=== PATIENT | male | born 1955 | race Caucasian/White ===

== ENCOUNTER 2018-02-22 12:57 | Observation (INO) | payer MEDICAID, OTHER ==
[2018-02-22 12:57] VITALS: BMI 34.0
[2018-02-22 14:55] LABS: BASO % 0.4 % (0.0-2.0); EOS # 0.1 K/uL (0.0-0.7); EOS % 1.1 % (0.0-4.0); HEMOGLOBIN 14.6 g/dL (12.0-18.0); LYMPH # 1.2 K/uL (1.0-4.3); LYMPH % 12.1 % (20.0-40.0); MEAN CELL VOLUME 90.7 fl (80.0-94.0); MEAN CORPUSCULAR HEMOGLOBIN 31.7 pg (27.0-31.0); MEAN PLATELET VOLUME 9.6 fl (7.2-11.7); MONO # 0.6 K/uL (0.0-0.8); NEUT # 7.8 K/uL (1.8-7.0); NEUT % 80.4 % (50.0-75.0); NRBC % 0.1 % (0.0-0.0); RBC 4.61 Mil/uL (4.40-5.90); RED CELL DISTRIBUTION WIDTH 12.8 % (11.5-14.5); WHITE BLOOD COUNT 9.7 K/uL (4.8-10.8)
[2018-02-22 15:05] LABS: URINE BILIRUBIN NEGATIVE (NEGATIVE); URINE CLARITY SLIGHT-CLOUDY (Clear); URINE COLOR LIGHT RED (YELLOW); URINE GLUCOSE (UA) NEGATIVE (Normal)
[2018-02-22 15:06] LABS: URINE PROTEIN 100 mg/dL (NEGATIVE); URINE UROBILINOGEN 0.2-1.0 mg/dL (0.2-1.0)
[2018-02-22 15:07] LABS: SQUAMOUS EPITHIAL 1 /hpf (0-5); URINE BACTERIA RARE (<OCC); URINE BLOOD LARGE (NEGATIVE); URINE LEUKOCYTE ESTERASE Negative Leu/uL (Negative)
--- NOTE | 2018-02-22 16:37 | ED PDOC ---
HPI: Male Pain Time Seen by Provider: 02/22/18 13:35 Chief Complaint (Nursing): Male Genitourinary Chief Complaint (Provider): hematuria History Per: Patient, [employer], Other (urologist Dr Arroyo) Onset/Duration Of Symptoms: Gradual Current Symptoms Are (Timing): Still Present Quality Of Discomfort: Burning Additional Complaint(s): 62yo male with gross hematuria with clots, went to Dr Arroyo and thought in retention, sent to ED for evaluation and recommended admission for cystoscopy. Per patient first time this has happened. Known hx BPH w laser TURP several years ago. Denies recent fever, weakness or penile/pelvic trauma. Past Medical History Reviewed: Historical Data, Nursing Documentation, Vital Signs Vital Signs: Last Vital Signs Temp 98.2 F 02/22/18 13:12 Pulse 84 02/22/18 13:12 Resp 20 02/22/18 13:12 BP 149/83 02/22/18 13:12 Pulse Ox 98 02/22/18 13:12 - Medical History PMH: Anemia, Diverticulitis, Gastritis, Hypercholesterolemia Denies: Chronic Kidney Disease - Surgical History Surgical History: Hernia Repair - Family History Family History: States: Unknown Family Hx - Social History Current smoker - smoking cessation education provided: No - Immunization History Hx Tetanus Toxoid Vaccination: No Hx Influenza Vaccination: Yes Hx Pneumococcal Vaccination: No - Home Medications Home Medications: Ambulatory Orders Medication Instructions Recorded RX: Atorvastatin [Lipitor] 10 mg PO DAILY 02/22/18 RX: Calcium/Magnesium/Zinc [Sm 1 tab PO DAILY 02/22/18 [id number] Tab] RX: Cyclobenzaprine [Flexeril] 5 mg PO HS 02/22/18 RX: Fenofibrate 200 mg PO DAILY 02/22/18 RX: Gabapentin [Neurontin] 300 mg PO HS 02/22/18 RX: Bath-3/Dha/Epa/Fish Oil 2 gm PO BID 02/22/18 [Bath-3 Fish Oil 1,000 mg Sftg] RX: Omeprazole 40 mg PO DAILY 02/22/18 RX: Vitamin E [Vitamin E 400 Units 1 cap PO DAILY 02/22/18 Cap] Cefuroxime Axetil [Cefuroxime] 500 mg PO BID #20 tablet 02/24/18 RX: Tamsulosin [Flomax] 0.4 mg PO DAILY #14 cap 02/24/18 - Allergies Allergies/Adverse Reactions: Allergies Allergy/AdvReac Type Severity Reaction Status Date / Time No Known Allergies Allergy Verified 02/22/18 13:14 Review of Systems Constitutional: Negative for: Fever Cardiovascular: Negative for: Chest Pain Gastrointestinal: Positive for: Abdominal Pain. Negative for: Nausea Genitourinary Male: Positive for: Dysuria, Hematuria, Penile Pain Musculoskeletal: Positive for: Back Pain. Negative for: Neck Pain Skin: Negative for: Rash, Lesions Neurological: Negative for: Weakness, Numbness, Headache, Dizziness Psych: Negative for: Suicidal ideation Physical Exam - Reviewed Nursing Documentation Reviewed: Yes Vital Signs Reviewed: Yes - Physical Exam Appears: Positive for: Well, Non-toxic, No Acute Distress Head Exam: Positive for: ATRAUMATIC, NORMAL INSPECTION, NORMOCEPHALIC Skin: Positive for: Normal Color, Warm, DRY Eye Exam: Positive for: EOMI, Normal appearance, PERRL ENT: Positive for: Normal ENT Inspection Neck: Positive for: Normal, Painless ROM Cardiovascular/Chest: Positive for: Regular Rate, Rhythm Respiratory: Positive for: CNT, Normal Breath Sounds Gastrointestinal/Abdominal: Positive for: Soft Male Genital Exam: Positive for: bleeding (+gross blood clots) Back: Positive for: Normal Inspection Extremity: Positive for: Normal ROM Neurologic/Psych: Positive for: Alert, Oriented - Laboratory Results Result Diagrams: 02/24/18 05:45 02/24/18 05:45 - ECG O2 Sat by Pulse Oximetry: 98 Medical Decision Making Medical Decision Makinyo male sent from Dr Arroyo office with urinary retention and hematuria labs reviewed [address] way urbina placed w CBI D/w Dr Arroyo and Dr Barclay, admit Obs for possible OR tomorrow Ucx ordered PMD Trini Posada elma Disposition - Clinical Impression Clinical Impression: Gross hematuria, Urinary retention - Patient ED Disposition Is Patient to be Admitted: Yes Counseled Patient/Family Regarding: Studies Performed, Diagnosis - Disposition Disposition Time: 16:00 Condition: IMPROVED - Pt Status Changed To: Hospital Disposition Of: Observation - POA Present On Arrival: None
[2018-02-22 16:44] LABS: BLOOD UREA NITROGEN 13 mg/dl (9-20); GFR NON-AFRICAN AMERICAN > 60
[2018-02-22 16:45] LABS: ALB/GLOB RATIO 1.6 (1.0-2.1); ALBUMIN 4.2 g/dL (3.5-5.0); CALCIUM 9.7 mg/dL (8.4-10.2)
[2018-02-22 16:46] LABS: ALT/SGPT 46 U/L (21-72); AST/SGOT 34 U/L (17-59)
[2018-02-22] MEDS ORDERED: Naproxen 500 MG TAB PO SCH (21:00)
[2018-02-22] MEDS ORDERED: Naproxen 500 MG TAB PO ONE (21:34)
[2018-02-23 05:33] LABS: BASO % 0.4 % (0.0-2.0); EOS # 0.1 K/uL (0.0-0.7); EOS % 0.8 % (0.0-4.0); LYMPH # 1.2 K/uL (1.0-4.3); LYMPH % 12.6 % (20.0-40.0); MEAN CORPUSCULAR HEMOGLOBIN 31.8 pg (27.0-31.0); MEAN CORPUSCULAR HGB CONC 34.9 g/dL (33.0-37.0); MEAN PLATELET VOLUME 8.8 fl (7.2-11.7); MONO # 0.7 K/uL (0.0-0.8); MONO % 8.1 % (0.0-10.0); NEUT # 7.2 K/uL (1.8-7.0); NEUT % 78.1 % (50.0-75.0); NRBC % 0.1 % (0.0-0.0); RBC 4.4 Mil/uL (4.40-5.90); RED CELL DISTRIBUTION WIDTH 12.6 % (11.5-14.5); WHITE BLOOD COUNT 9.2 K/uL (4.8-10.8)
[2018-02-23 05:43] LABS: ALB/GLOB RATIO 1.5 (1.0-2.1); ALT/SGPT 35 U/L (21-72); AST/SGOT 21 U/L (17-59); BLOOD UREA NITROGEN 15 mg/dl (9-20); GFR NON-AFRICAN AMERICAN > 60; HDL CHOLESTEROL 32 MG/DL (30-70)
[2018-02-23 05:54] LABS: LDL CHOLESTEROL 82 mg/dL (0-129)
--- NOTE | 2018-02-23 07:06 | CARD ---
APPROVED REPORT Date of service: 02/22/2018 EKG Measurement Heart [id number] <Conclusion> Normal sinus rhythm Normal ECG
[2018-02-23 08:21] VITALS: RESP 20
[2018-02-23] MEDS ORDERED: Chlorhexidine Gluconate 1 APPL/PKT TP ONE (10:34)
[2018-02-23] MEDS: Pantoprazole 40 mg EC Tab PO SCH (12:46)
--- NOTE | 2018-02-23 13:31 | US ---
Date of service: 02/23/2018 PROCEDURE: Ultrasound of the Bladder HISTORY: discussed with dr tillman COMPARISON: None available. TECHNIQUE: Sonographic evaluation of the bladder was performed. FINDINGS: There is an indwelling Powell catheter. The urinary bladder is partially distended . No calculus or gross mass lesion. No free fluid in pelvis. Bilateral ureteral jets are visualized on color flow imaging. Prevoid Volume: 203.16 cc. Post void residual: 10.33 cc. The prostate gland is normal in size and measures 3.2 x 3.0 x 4.9 cm with a volume of 25.74 mL. IMPRESSION: Indwelling Powell catheter. Small postvoid residual.
--- NOTE | 2018-02-23 13:33 | US ---
Date of service: 02/23/2018 PROCEDURE: Ultrasound of the Kidneys HISTORY: Hematuria COMPARISON: None available. TECHNIQUE: Grayscale imaging was performed. FINDINGS: RIGHT KIDNEY: Measures: 11.2 cm. Normal in size, contour and echogenicity. No stone, solid mass lesion or hydronephrosis visualized. LEFT KIDNEY: Measures: 12.7 cm. Normal in size, contour and echogenicity. No stone, solid mass lesion or hydronephrosis visualized. There is a 2.6 x 2.9 x 1.7 cm simple cyst in the upper pole. OTHER FINDINGS: None. IMPRESSION: No nephrolithiasis or hydronephrosis. 2.9 cm simple cyst in the upper pole of the left kidney.
--- NOTE | 2018-02-23 17:34 | CP.PCM.HP ---
<Casandra Crandall - Last Filed: 02/23/18 17:34> History of Present Illness - History of Present Illness History of Present Illness: 62 y/o male with MHx significant for HLD, diverticulosis, and gastritis sent from Urologist office due to acute urinary retention. Patient states he has been having rectal pain when sitting. Denies any dysuria, frequency, fever/chills. ROS: 14 systems reviewed, negative other than HPI MHx: HLD, diverticulosis, gastritis SHx: Hernia surgery in the past, recent hemorrhoid surgery Allergies: NKDA Medications: As per med rec Family Hx: Reviewed, no relevant findings Social Hx: Lives with family; denies smoking, occasional EtOH ED Course: -UA Large blood, 95 RBC -Powell Inserted -Flomax Present on Admission - Present on Admission Any Indicators Present on Admission: No Past Patient History - Infectious Disease Hx of Infectious Diseases: None - Past Medical History & Family History Past Medical History?: Yes - Past Social History Smoking Status: Former Smoker - CARDIAC Hx Cardiac Disorders: Yes Hx Hypercholesterolemia: Yes - PULMONARY Hx Respiratory Disorders: No - NEUROLOGICAL Hx Neurological Disorder: No - HEENT Hx HEENT Problems: No - RENAL Hx Chronic Kidney Disease: No - ENDOCRINE/METABOLIC Hx Endocrine Disorders: No - HEMATOLOGICAL/ONCOLOGICAL Hx Blood Disorders: Yes Hx Anemia: Yes - INTEGUMENTARY Hx Dermatological Problems: No - MUSCULOSKELETAL/RHEUMATOLOGICAL Hx Musculoskeletal Disorders: No Hx Falls: No - GASTROINTESTINAL Hx Gastrointestinal Disorders: Yes Hx Diverticulitis: Yes Hx Gastritis: Yes Other/Comment: GI Bleed - GENITOURINARY/GYNECOLOGICAL Hx Genitourinary Disorders: No - PSYCHIATRIC Hx Psychophysiologic Disorder: No Hx Substance Use: No - SURGICAL HISTORY Hx Surgeries: Yes Hx Herniorrhaphy: Yes (RIGHT INGUINAL ) Hx Orthopedic Surgery: Yes (BILATERAL KNEE SURGERY) Other/Comment: LASER EYE SURGERY. HEMORRHOIDECTOMY. PROSTATE SX - ANESTHESIA Hx Anesthesia: Yes Hx Anesthesia Reactions: No Hx Malignant Hyperthermia: No Meds Allergies/Adverse Reactions: Allergies Allergy/AdvReac Type Severity Reaction Status Date / Time No Known Allergies Allergy Verified 02/22/18 13:14 Physical Exam - Constitutional Appears: No Acute Distress - Head Exam Head Exam: NORMAL INSPECTION - Eye Exam Eye Exam: Normal appearance - ENT Exam ENT Exam: Mucous Membranes Moist - Neck Exam Neck exam: Positive for: Normal Inspection - Respiratory Exam Respiratory Exam: Clear to Auscultation Bilateral. absent: Rales, Wheezes - Cardiovascular Exam Cardiovascular Exam: REGULAR RHYTHM, +S1, +S2 - GI/Abdominal Exam GI & Abdominal Exam: Normal Bowel Sounds, Soft. absent: Tenderness - Extremities Exam Extremities exam: Positive for: normal inspection - Neurological Exam Neurological exam: Alert - Psychiatric Exam Psychiatric exam: Normal Affect - Skin Skin Exam: Normal Color Results - Vital Signs Recent Vital Signs: Last Vital Signs Temp 99.3 F 02/23/18 15:50 Pulse 88 02/23/18 15:50 Resp 20 02/23/18 15:50 BP 118/73 02/23/18 15:50 Pulse Ox 97 02/23/18 15:50 - Labs Result Diagrams: 02/23/18 04:45 02/23/18 04:45 Labs: Laboratory Results - last 24 hr 02/23/18 02/23/18 02/23/18 04:45 04:45 07:13 WBC 9.2 RBC 4.40 Hgb 14.0 Hct 40.0 MCV 91.0 MCH 31.8 H MCHC 34.9 RDW 12.6 Plt Count 197 MPV 8.8 Neut % (Auto) 78.1 H Lymph % (Auto) 12.6 L [place] % (Auto) 8.1 Eos % (Auto) 0.8 Baso % (Auto) 0.4 Neut # (Auto) 7.2 H Lymph # (Auto) 1.2 [place] # (Auto) 0.7 Eos # (Auto) 0.1 Baso # (Auto) 0.0 Sodium 141 Potassium 3.8 Chloride 110 H Carbon Dioxide 24 Anion Gap 11 BUN 15 Creatinine 0.8 Est GFR ( Amer) > 60 Est GFR (Non-Af Amer) > 60 Random Glucose 109 Calcium 10.0 Total Bilirubin 0.3 AST 21 ALT 35 Alkaline Phosphatase 46 Total Protein 6.6 Albumin 4.0 Globulin 2.6 Albumin/Globulin Ratio 1.5 Triglycerides 210 H Cholesterol 139 LDL Cholesterol Direct 82 HDL Cholesterol 32 Prostate Specific Ag 2.02 Vitamin B12 532 Assessment & Plan - Assessment and Plan (Free Text) Assessment: 62 y/o male with MHx significant for HLD, diverticulosis, and gastritis sent from Urologist office due to acute urinary retention. -Urology consulted, Dr. Dueñas -Ucx, PSA sent -C/W Flomax and Urine Opwell -Urinary retention cause unknown: Enlarged prostate vs Prostatitis -Rocephin started daily -Renal US and Pelvic US ordered by Urology- pending report Discussed case with Dr. Jones <Nav Jones - Last Filed: 02/23/18 18:45> Results - Vital Signs Recent Vital Signs: Last Vital Signs Temp 99.3 F 02/23/18 15:50 Pulse 88 02/23/18 15:50 Resp 20 02/23/18 15:50 BP 118/73 02/23/18 15:50 Pulse Ox 97 02/23/18 15:50 - Labs Result Diagrams: 02/23/18 04:45 02/23/18 04:45 Labs: Laboratory Results - last 24 hr 02/23/18 02/23/18 02/23/18 04:45 04:45 07:13 WBC 9.2 RBC 4.40 Hgb 14.0 Hct 40.0 MCV 91.0 MCH 31.8 H MCHC 34.9 RDW 12.6 Plt Count 197 MPV 8.8 Neut % (Auto) 78.1 H Lymph % (Auto) 12.6 L [place] % (Auto) 8.1 Eos % (Auto) 0.8 Baso % (Auto) 0.4 Neut # (Auto) 7.2 H Lymph # (Auto) 1.2 [place] # (Auto) 0.7 Eos # (Auto) 0.1 Baso # (Auto) 0.0 Sodium 141 Potassium 3.8 Chloride 110 H Carbon Dioxide 24 Anion Gap 11 BUN 15 Creatinine 0.8 Est GFR ( Amer) > 60 Est GFR (Non-Af Amer) > 60 Random Glucose 109 Calcium 10.0 Total Bilirubin 0.3 AST 21 ALT 35 Alkaline Phosphatase 46 Total Protein 6.6 Albumin 4.0 Globulin 2.6 Albumin/Globulin Ratio 1.5 Triglycerides 210 H Cholesterol 139 LDL Cholesterol Direct 82 HDL Cholesterol 32 Prostate Specific Ag 2.02 Vitamin B12 532 Assessment & Plan - Assessment and Plan (Free Text) Assessment: Patient was personally seen and examined by me in rounds with residents. Available labs and diagnostic data reviewed. Case, Patient's condition and management plan discussed with residents in rounds. Agree with resident's progress note. Plan: As ordered.
[2018-02-24 06:10] LABS: HEMOGLOBIN 13.8 g/dL (12.0-18.0); MEAN CELL VOLUME 93.3 fl (80.0-94.0); MEAN CORPUSCULAR HEMOGLOBIN 31.7 pg (27.0-31.0); MEAN CORPUSCULAR HGB CONC 33.9 g/dL (33.0-37.0); RBC 4.36 Mil/uL (4.40-5.90); RED CELL DISTRIBUTION WIDTH 12.6 % (11.5-14.5); WHITE BLOOD COUNT 7.7 K/uL (4.8-10.8)
[2018-02-24 06:46] LABS: BLOOD UREA NITROGEN 20 mg/dl (9-20); CALCIUM 9.2 mg/dL (8.4-10.2); GFR NON-AFRICAN AMERICAN > 60
[2018-02-24 08:37] VITALS: BP 97/56; PULSE 69; TEMP 98
--- NOTE | 2018-02-24 08:47 | CON ---
DATE: 02/23/2018 UROLOGIC CONSULTATION TIME OF CONSULTATION: Roughly 10:55 a.m. BRIEF HISTORY: The patient is a 62-year-old male, status post GreenLight laser PVP treatment of BPH by Dr. Marline Arroyo in 2016 who presents with a 1-day history of some gross hematuria associated with some intermittent dysuria, requiring him to come to the [facility] ER where a #3-way continuous flow hematuria catheter was inserted with grossly bloody drainage with passage of some clots. This cleared almost immediately on continuous bladder irrigation with normal saline CBI. The patient was admitted for observation. This catheter drained clear phillip urine overnight and this morning was clamped in preparation for a bladder and renal ultrasound. It is now draining clear phillip urine without any clots off CBI. Roughly around the same time, the patient had his GreenLight laser PVP for treatment of BPH, the patient also had a hydrocelectomy by Dr. Marline Arroyo and at the same time had a repair of a right inguinal hernia with a mesh. PAST MEDICAL HISTORY: Consistent with anemia, diverticulitis, gastritis, hypercholesterolemia, and hyperlipidemia. MEDICATIONS: The patient previously was on Lipitor which he stopped, and is now on fenofibrate for treatment just of his hypertriglyceridemia. He also takes gabapentin for sciatica and he is on lisinopril for treatment of hypertension. He also takes Claritin for treatment of allergies and is on Naprosyn for treatment of his pain. He is also on fish oil and omega-3. He is also on tramadol p.r.n. for pain. ALLERGIES: HE HAS NO KNOWN ALLERGIES TO ANY MEDICATIONS. FAMILY HISTORY: Unknown to the patient. SOCIAL HISTORY: He does give a history of alcohol consumption socially, and also tobacco use. PHYSICAL EXAMINATION VITAL SIGNS: Today, 02/23/2018, showed a temperature of 97.9, pulse rate 73, blood pressure 124/75, respiratory rate 20, and O2 saturation on room air 97%. HEENT: Grossly within normal limits. NECK: Supple. Thyroid not palpable. ABDOMEN: Soft, nondistended, nontender. No CVA tenderness. No suprapubic tenderness, and a 3-way Powell catheter is draining phillip urine well on CBI at this time. GENITALIA: He is noncircumcised with normal glans and meatus. Testes are down bilaterally, nontender without any masses. RECTAL: Normal rectal tone without fluctuance or masses. Prostate is enlarged, wide, symmetrical, moderately tender without nodules or indurations with a palpable median sulcus. Urine C and S is pending. The patient was started on Flomax 0.8 mg. The patient was also started on Rocephin 1 g IV every 24 hours for treatment of his possible prostatitis. The patient can be discharged home after his renal and bladder ultrasound with removal of the Powell catheter for voiding trial on Flomax 0.8 mg daily. The patient also to be discharged home on Ceftin 500 mg b.i.d. for 10 days or Cipro 500 mg b.i.d. for 10 days. The patient can be seen in office followup in 1 week. Zachary Barclay MD [email or web address]
[2018-02-24] MEDS: Pantoprazole 40 mg EC Tab PO SCH (09:03)
--- NOTE | 2018-02-24 11:09 | PN ---
DATE: 02/24/2018 SUBJECTIVE: The patient seen and examined. Interim events noted. Consults noted and appreciated. The patient remains in regular medical floor. Sleeping, arousable. Feels okay. Denies any specific complaint. No chest pain or shortness of breath. No specific issue reported by nursing staff. PHYSICAL EXAMINATION: GENERAL: The patient is in no acute distress. VITAL SIGNS: Stable. HEART EXAM: S1, S2 normal regular. LUNGS: Good bilateral air exchange. ABDOMEN: Soft and nontender. The patient does have Powell catheter in place. clear leakage. No clear urine. No blood. EXTREMITIES EXAM: No edema. No calf swelling. No tenderness. No acute ischemia. CENTRAL NERVOUS EXAM: Essentially unchanged. DIAGNOSTIC DATA: Available diagnostic data reviewed. ASSESSMENT AND PLAN: Overall the patient's general medical condition is stable. Plan as ordered. Nav Jones MD
[2018-02-24 23:31] VITALS: O2SAT 98
== END 2018-02-24 16:15 | disposition home or self-care (01) ==
LOC: H.ER 12:57 → H.ERHOLD 16:45 → H.TEL 22:48 → H.MEDSURG1 02-24 00:41
PROVIDERS: ADMIT Internal Medicine; ATTEND Internal Medicine
DX: R33.9 Retention of urine, unspecified (principal); R31.0 Gross hematuria; E78.00 Pure hypercholesterolemia, unspecified; E78.5 Hyperlipidemia, unspecified; K29.70 Gastritis, unspecified, without bleeding; R30.0 Dysuria; K62.89 Other specified diseases of anus and rectum; Z87.891 Personal history of nicotine dependence; E78.1 Pure hyperglyceridemia; M54.30 Sciatica, unspecified side; I10 Essential (primary) hypertension
CPT/HCPCS: 36415; 76770; 76856; 80048; 80053; 80061; 81003; 82607; 84153; 85025; 85027; 87086; 93005; 99285; G0378; J0696